=== PATIENT | female | born 1930 | race Caucasian/White ===

== ENCOUNTER 2018-02-07 18:09 | Emergency (ER) | payer OTHER ==
[~2018-02-07] VITALS: Ht 157.5 cm; Wt 68.0 kg
[~2018-02-07 18:09] MED LIST: ACET500; ALBU90OI61 INH; AMLO5 PO; ANAS1; ANAS1 PO; ASPI81CH; ASPI81EC; ASPI81EC PO; BUDE32NIS; BUPR150ER; BUPR150T2; BUPR150T2 PO; CALCAVITD; CALCAVITD PO; CALCNI; CEFU250 PO; CELE200; CEPH250A PO; CETI10 PO; CETI5 PO; DULO30 PO; ERGO400 PO; ESOM20; ESTR.75; FEXO180; FLUT.05NI; FURO100EL PO; FURO20; FURO20 PO; GABA600 PO; GLUCHON PO; HYDACE5; HYDACE5325 PO; HYDACE7.5; HYDACE7.5 PO; HYDROCOD; HYDROCODONE/APAP; IRON150C; Keflex500 MG PO; LANS30EC PO; LEVSOD50; LEVSOD50 PO; LISI20; LISI20 PO; LORA10; LORA10ER; LOSA50 PO; LOSARTAN POTAS100 MG PO; LUNESTA; MAGOXI400 PO; METF500 PO; METF500C PO; METO25ER PO; METO50ER; METO50ER PO; MILN100T PO; MOMENI; MOXI400; MULVITA; MULVITMINF; NAPR220 PO; NIFEDICAL; NISO10ER; OMEP20ER; OMEP20ER PO; PANT40 PO; PHENA200 PO; POLY17UD PO; POTA10T PO; POTCHL20ER; POTCHL20ER PO; PREG25 PO; PREG50 PO; PSYL5.85P; ROSU10TA; SIMV20; SIMV40 PO; SIMV80 PO; SIMVASTATIN; SULTRIDS PO; TIZANIDINE HCL2 MG PO; TRAN2; VALD10; VITAMIN B122500 MCG; WARF5 PO; [UNRECOGNIZED DRUG - CODE]; [UNRECOGNIZED DRUG - OTHER]; [UNRECOGNIZED DRUG - OTHER]; [UNRECOGNIZED DRUG - OTHER]; [UNRECOGNIZED DRUG - OTHER]; arimidex
[2018-02-07 19:22] LABS: BASOPHILS ABSOLUTE AUTO 0.06 K/mm3 (0.00-0.23); BASOPHILS PERCENT AUTO 1 % (0-2); EOSINOPHILS ABSOLUTE AUTO 0.48 K/mm3 (0.00-0.68); EOSINOPHILS PERCENT AUTO 7 % (0-6); Hematocrit 49.4 % (33.0-51.0); Hemoglobin 15.3 g/dL (11.5-16.0); IMMATURE GRAN ABSOLUTE AUTO 0.01 K/mm3 (0.00-0.10); IMMATURE GRAN PERCENT AUTO 0 % (0-1); LYMPHOCYTES ABSOLUTE AUTO 1.92 K/mm3 (0.84-5.20); LYMPHOCYTES PERCENT AUTO 28 % (21-46); MONOCYTES ABSOLUTE AUTO 0.73 K/mm3 (0.16-1.47); MONOCYTES PERCENT AUTO 11 % (4-13); Mean Corpuscular HGB 28.6 pg (26.0-34.0); Mean Corpuscular Volume 92 fL (80-100); Mean Platelet Volume 10.1 fL (9.1-12.4); NEUTROPHILS ABSOLUTE AUTO 3.74 K/mm3 (1.96-9.15); NEUTROPHILS PERCENT AUTO 54 % (41-73); Platelet Count 185 K/mm3 (150-400); RDW Coefficient Variation 13.9 % (11.7-14.2); RDW Standard Deviation 47.2 fL (35.1-46.3); Red Blood Cell Count 5.35 M/mm3 (3.80-5.20); White Blood Cell Count 6.94 K/mm3 (4.00-11.30)
[2018-02-07 19:40] LABS: Alanine Aminotransfer (ALT/SGP 24 U/L (12-78); Albumin, Blood 3.6 g/dL (3.4-5.0); Albumin/Globulin Ratio 1.2 (0.8-1.8); Alk Phos 103 U/L (50-136); Anion Gap 5 mmol/L (6-16); Aspartate Aminotrans (AST/SGOT 21 U/L (12-37); Blood Urea Nitrogen 19 mg/dL (8-24); Bun/Creatinine Ratio 20.1 (12.0-20.0); CO2, Blood 31 mmol/L (21-32); Calcium, Blood 10.6 mg/dL (8.5-10.1); Chloride, Blood 104 mmol/L (98-108); Creatinine, Blood 0.95 mg/dL (0.40-1.00); Glomerular Filtration Rate 59 (60-); Glucose, Blood 110 mg/dL (70-99); Potassium, Blood 4.1 mmol/L (3.5-5.5); Sodium, Blood 140 mmol/L (136-145); Total Protein, Blood 6.6 g/dL (6.4-8.2)
[2018-02-07 21:05] LABS: Troponin I <0.015 ng/mL (0.000-0.040)
[2018-02-07] MEDS ORDERED: MICROZIDE12.5 MG (21:46)
[2018-02-07] MEDS ORDERED: PREG50 (21:47)
[2018-02-07] MEDS ORDERED: Omeprazole20 M1 (21:47)
[2018-02-07 22:02] LABS: Source, Urine Clean Catch
[2018-02-07 22:07] LABS: Bilirubin, Urine Neg (Neg); Blood, Urine Neg (Neg); Glucose Qualitative, Urine Neg (Neg); Ketones, Urine Neg (Neg); Leukocyte Esterase, Urine 2+ (Neg); Nitrite, Urine Neg (Neg); Protein, Urine Neg (Neg); Urobilinogen, Urine NORM (Normal)
[2018-02-07 22:08] LABS: Appearance, Urine Clear (Clear); Color, Urine Yellow (P-Yellow)
[2018-02-07 22:15] LABS: Amorphous Light (0-Heavy); Bacteria Few /hpf; Red Blood Cells, Urine Not Seen /hpf (0-2); Squamous Epithelial Cells Rare /hpf (Few)
[2018-02-07] MEDS ORDERED: Arthritis Pai42.5 GM TOP (23:22)
[2018-02-07] MEDS ORDERED: Macrobid 100 M100 MG PO (23:22)
== END 2018-02-07 23:53 | disposition home or self-care (01) ==
LOC: ER 18:09
PROVIDERS: Emergency Medicine
DX: N30.00 Acute cystitis without hematuria (principal); R53.83 Other fatigue; M54.5 Low back pain; M54.2 Cervicalgia; N39.0 Urinary tract infection, site not specified; M25.551 Pain in right hip; M25.552 Pain in left hip; I10 Essential (primary) hypertension; Z86.711 Personal history of pulmonary embolism; Z88.1 Allergy status to other antibiotic agents; Z88.0 Allergy status to penicillin; Z88.2 Allergy status to sulfonamides; Z88.8 Allergy status to other drugs, medicaments and biological substances; Z79.899 Other long term (current) drug therapy; Z79.82 Long term (current) use of aspirin; Z79.84 Long term (current) use of oral hypoglycemic drugs
CPT/HCPCS: 36415; 71046; 72040; 72100; 73523; 80053; 81001; 82947; 83880; 84484; 85025; 87086; 93005; 93010; 99284

== ENCOUNTER 2018-05-25 15:47 | Emergency (ER) | payer OTHER ==
[~2018-05-25] VITALS: Ht 165.1 cm; Wt 99.8 kg
[~2018-05-25 15:47] MED LIST changes: +Arthritis Pai42.5 GM TOP; +MICROZIDE12.5 MG; +Macrobid 100 M100 MG PO; +Omeprazole20 M1; +PREG50
[2018-05-25 16:25] LABS: BASOPHILS ABSOLUTE AUTO 0.03 K/mm3 (0.00-0.23); BASOPHILS PERCENT AUTO 0 % (0-2); EOSINOPHILS ABSOLUTE AUTO 0.16 K/mm3 (0.00-0.68); EOSINOPHILS PERCENT AUTO 1 % (0-6); Hematocrit 46.8 % (33.0-51.0); Hemoglobin 15.3 g/dL (11.5-16.0); IMMATURE GRAN ABSOLUTE AUTO 0.05 K/mm3 (0.00-0.10); IMMATURE GRAN PERCENT AUTO 0 % (0-1); LYMPHOCYTES ABSOLUTE AUTO 1.76 K/mm3 (0.84-5.20); LYMPHOCYTES PERCENT AUTO 12 % (21-46); MONOCYTES PERCENT AUTO 6 % (4-13); Mean Corpuscular HGB 31.6 pg (26.0-34.0); Mean Corpuscular HGB Conc 32.7 g/dL (31.5-36.5); Mean Corpuscular Volume 97 fL (80-100); Mean Platelet Volume 10.3 fL (9.1-12.4); NEUTROPHILS ABSOLUTE AUTO 11.42 K/mm3 (1.96-9.15); NEUTROPHILS PERCENT AUTO 80 % (41-73); Platelet Count 212 K/mm3 (150-400); RDW Coefficient Variation 12.4 % (11.7-14.2); RDW Standard Deviation 44.2 fL (35.1-46.3); Red Blood Cell Count 4.84 M/mm3 (3.80-5.20); White Blood Cell Count 14.22 K/mm3 (4.00-11.30)
[2018-05-25 16:38] LABS: International Normalized Ratio 0.98; Prothrombin Time Results 10.1 Sec (9.7-11.5)
[2018-05-25 16:41] LABS: Source, Urine Clean Catch
[2018-05-25 16:44] LABS: Albumin, Blood 3.6 g/dL (3.4-5.0); Albumin/Globulin Ratio 1.2 (0.8-1.8); Bilirubin, Total 1.3 mg/dL (0.1-1.0); Bun/Creatinine Ratio 22.8 (12.0-20.0); Calcium, Blood 10.4 mg/dL (8.5-10.1); Creatinine, Blood 1.01 mg/dL (0.40-1.00); Globulin, Blood 3.1 g/dL (2.2-4.0); Potassium, Blood 4.1 mmol/L (3.5-5.5); Total Protein, Blood 6.7 g/dL (6.4-8.2)
[2018-05-25 16:45] LABS: Bilirubin, Urine Neg (Neg); Blood, Urine 1+ (Neg); Glucose Qualitative, Urine Neg (Neg); Ketones, Urine Neg (Neg); Leukocyte Esterase, Urine 3+ (Neg); Nitrite, Urine Neg (Neg); Protein, Urine Neg (Neg); Specific Gravity, Urine 1.015 (1.003-1.022); Urobilinogen, Urine NORM (Normal); pH, Urine 6.5 (5.0-8.0)
[2018-05-25 16:54] LABS: Appearance, Urine Clear (Clear); Color, Urine Yellow (P-Yellow)
[2018-05-25 16:55] LABS: Bacteria Few /hpf; Red Blood Cells, Urine 0-2 /hpf (0-2); Squamous Epithelial Cells Few /hpf (Few)
[2018-05-25 16:57] LABS: U Amphetamine Screen Not Detected; U Barbituate Screen Not Detected; U Benzodiazapine Screen Not Detected; U Buprenorphine Screen Not Detected; U Cannabinoids Screen Not Detected; U Cocaine Screen Not Detected; U Methadone Screen Not Detected; U Methamphetamine Screen Not Detected; U Opiates Screen DETECTED; U Oxycodone Screen Not Detected; U Phencyclidine Screen Not Detected; U Propoxyphene Screen Not Detected
== END 2018-05-25 19:16 | disposition short-term general hospital (02) ==
LOC: ER 15:47
PROVIDERS: Internal Medicine
DX: I66.02 Occlusion and stenosis of left middle cerebral artery (principal)
CPT/HCPCS: 36415; 51702; 70450; 70496; 70498; 71045; 80053; 81001; 85025; 85610; 85730; 87086; 93005; 93010; 96360; 96361; 99285-25; J7030; Q9967